=== PATIENT | female | born 1955 | race Caucasian/White ===

== ENCOUNTER 2016-06-20 08:30 | Day surgery (SDC) | payer OTHER ==
[~2016-06-20] VITALS: Ht 167.6 cm; Wt 65.3 kg
[~2016-06-20 08:30] MED LIST: CHOL200047 PO; CITA40TA PO; ELET40TA9 PO; MULT-1018 PO; Sodium Chloride LOK Flush 10 mL Syringe IV PRN; fentaNYL-PF 50 mCg/mL 2 mL Inj IVPUSH PRN
[2016-06-20 08:49] VITALS: BP 109/67; PULSE 77; RESP 16; O2SAT 100
[2016-06-20] MEDS: 0.9% Sodium Chloride 1,000 ML IV SCH ×2 (08:56→10:01)
[2016-06-20 10:10] VITALS: BP 103/62; PULSE 74; RESP 14; O2SAT 98
[2016-06-20 10:20] VITALS: BP 101/63; PULSE 72; RESP 14; O2SAT 97
[2016-06-20 10:25] VITALS: BP 102/61; PULSE 73; RESP 14; O2SAT 99
--- NOTE | 2016-06-20 10:25 | ENDO ---
[address] [address] ENDOSCOPY PROCEDURE PATIENT: MARLY WONG : 1955 MR#: [id number] ADMIT: 06/20/2016 JOB ID: [id number] DATE: 06/20/2016 PROCEDURE: Colonoscopy. INDICATIONS: Screening. The patient's ASA classification is 2. Mallampati score is 2. MEDICATIONS: 1. Versed 4 mg. 2. Fentanyl 75 mcg. INSTRUMENT USED: PCF H 190 L. PREPARATION QUALITY: Was fair. PROCEDURE DETAILS: After informed consent was obtained, the patient was brought into the GI suite, where she was placed on oxygen via nasal cannula and monitored with continuous pulse oximeter, telemetry and blood pressure monitoring. A time-out was performed. Then, she was placed in the left lateral decubitus position and medications were administered for sedation. A digital rectal examination was performed and was unremarkable. The colonoscope was then inserted into the rectum and advanced under direct visualization to the cecum, which was identified by the presence of the ileocecal valve and appendiceal orifice. Once the cecum was reached, the colonoscope was withdrawn back to the rectum as the mucosa and lumen were examined. In the rectum, retroflexion was performed. Following retroflexion, remaining air in the rectum was suctioned, and the procedure was completed. FINDINGS: 1. In the ascending colon, there was a diminutive polyp that was removed with cold biopsy forceps. 2. Scattered diverticula were seen throughout the sigmoid colon. 3. Retroflexed views in the rectum were unremarkable. IMPRESSION: 1. Ascending colon polyp. 2. Sigmoid diverticulosis. RECOMMENDATIONS: 1. Fiber rich diet. 2. Repeat colonoscopy pending polyp pathology results. COMPLICATIONS: None. ESTIMATED BLOOD LOSS: Less than 5 mL.
--- NOTE | 2016-06-21 11:17 | PATH ---
SURGICAL PATHOLOGY Attending Physician:Salazar Carrasco CASE STATUS: Signed Out PATIENT NAME: MARLY WONG PID: [id number] : 1955 DATE COLLECTED:06/20/2016 15:48 SPECIMEN: Colon, Biopsy CLINICAL HISTORY: ASCENDING POLYP FINAL DIAGNOSIS: Ascending Colon Polyp, Biopsy: Tubular adenoma. ICD10 D12.6 GROSS DESCRIPTION: The specimen is received in one formalin filled container labeled with the patient's name, sublabeled "ascending polyp" and consists of 2 portions of tissue which aggregate to 0.4 x 0.4 x 0.3 CM. Specimen is entirely submitted in one cassette. 06/20/2016 [facility] ICD-9 CODES: CPT CODES: 1: [id number] Electronically Signed Out Ayan Sanchez MD, PhD [facility] Pathology [facility], [place] [address] Technical component performed at [facility], [facility] [address], [address]
== END 2016-06-20 23:59 | disposition home or self-care (01) ==
LOC: END 08:30
PROVIDERS: ATTEND Internal Medicine Gastroenterology
DX: Z12.11 Encounter for screening for malignant neoplasm of colon (principal); D12.2 Benign neoplasm of ascending colon; K57.30 Diverticulosis of large intestine without perforation or abscess without bleeding; Z86.010 Personal history of colon polyps; Z83.71 Family history of colonic polyps
CPT/HCPCS: 45380; J2250; J7030